=== PATIENT | female | born 1945 | race Hispanic/Latino ===

== ENCOUNTER 2016-12-26 09:34 | Outpatient (CLI) | payer MEDICARE, OTHER ==
--- NOTE | 2016-12-26 11:07 | Mammography Report ---
BONE DEXA:12/26/16 09:34:00 CLINICAL: Postmenopausal. COMPARISON: 12/15/14 TECHNIQUE: Two site bone DEXA performed on an Hologic scanner. FINDINGS: The average BMD of the lumbar spine L1-L4 is 0.720g/cm squared with a T-score of -3.0 and a Z-score of -0.7. This compares to 0.745g/cm squared on the last exam and represents a -3.3% change from the previous baseline. The average BMD of the left hip is 0.744g/cm squared with a T-score of -1.6 and a Z-score of 0. This compares to 0.752g/cm squared on the last exam and represents a -1.0% change from the previous baseline. The femoral neck BMD is 0.573g/cm squared with a T score of -2.5 and Z score of -0.6 IMPRESSION: 1. WHO classification: Osteoporosis with high fracture risk based on spine and left femoral neck measurements. 2. A modest decline in spine BMD and a slight decline in left hip BMD compared to the last exam. RECOMMENDATION: Clinical correlation and routine screening. DEFINITIONS: BMD = Bone Mineral Density T-score = BMD related to mean peak bone mass of young adult (mean expressed in Standard Deviation) Z-score = Age matched BMD expressed in SD World Health Organization (WHO) Diagnostic Criteria Normal T-score > -1 SD Osteopenia T-score between -1 and -2.4 SD Osteoporosis T-score -2.5 SD or below NOTE: BMD is not the only risk factor for fracture; also consider factors such as the patient's age, risk of falling, previous osteoporotic fracture, family history of osteoporotic fractures, current smoker, and low body weight. Z-scores are not calculated if >80 years of age.
== END 2016-12-26 09:35 | disposition home or self-care (01) ==
LOC: SPVWC 09:34
PROVIDERS: ATTEND Family Medicine
DX: M81.0 Age-related osteoporosis without current pathological fracture (principal); Z78.0 Asymptomatic menopausal state
CPT/HCPCS: 77080

== ENCOUNTER 2017-02-06 10:16 | Outpatient (CLI) | payer MEDICARE, OTHER ==
--- NOTE | 2017-02-06 15:43 | Mammography Report ---
BILATERAL DIGITAL SCREENING MAMMOGRAM with CAD: 02/06/17 10:16:00 CLINICAL: Routine screening. COMPARISON:02/06/16 FINDINGS: The breasts are heterogeneously dense, which may obscure small masses. No mass, architectural distortion or suspicious calcifications. IMPRESSION: No mammographic evidence of malignancy. BI-RADS CATEGORY: 1 - - Negative RECOMMENDATION: Routine mammographic screening in one year. COMMENT: Patient follow-up letters are generated by our Original application.
== END 2017-02-06 10:17 | disposition home or self-care (01) ==
LOC: SPVWC 10:16
PROVIDERS: ATTEND Obstetrics & Gynecology
DX: Z12.31 Encounter for screening mammogram for malignant neoplasm of breast (principal)
CPT/HCPCS: 77067; G0202

== ENCOUNTER 2017-07-11 15:02 | Outpatient (CLI) | payer MEDICARE, OTHER ==
--- NOTE | 2017-07-11 16:06 | XRay Report ---
XRAY RIGHT HAND THREE VIEWS: 07/11/17 15:02:00 CLINICAL: Right hand pain. FINDINGS: Moderate osteopenia. Moderately severe osteoarthritis involving the IP joint of the thumb and the DIP joints of digits 2-5. There is narrowing of the joint space with large osteophytes. No erosions. Osteoarthritis at the first MCP joint. The rest of the joints are normal. No fracture or dislocation. The carpal bones are intact. The distal radius and ulna are intact. Mild radiocarpal joint arthritis with narrowing of the joint space. Normal soft tissues. 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 Mild radiocarpal joint arthritis.
== END 2017-07-11 15:03 | disposition home or self-care (01) ==
LOC: SPVIMAG 15:02
PROVIDERS: ATTEND Orthopaedic Surgery Sports Medicine
DX: M18.9 Osteoarthritis of first carpometacarpal joint, unspecified (principal); M85.841 Other specified disorders of bone density and structure, right hand

== ENCOUNTER 2017-09-09 09:36 | Outpatient (CLI) | payer MEDICARE, OTHER ==
--- NOTE | 2017-09-09 10:53 | Mammography Report ---
Bilateral diagnostic mammogram followed by spot compression magnification density right breast and sonographic examination of the palpable region left breast: History: Left breast lump. Findings: Heterogeneous breast parenchyma bilaterally. 3 mm circumscribed density mid right breast effaced with spot compression magnification view. No microcalcifications seen. Benign axillary nodes. Sonographic examination reveals small cyst left axilla palpable region. Cyst measures 0.3 x 0.13 cm. Impression: Benign findings. Annual followup with mammogram recommended. BI-RADS CATEGORY: 2 = Benign ACR BI-RADS MAMMOGRAPHIC CODES: 0 = Needs additional imaging evaluation; 1 = Negative; 2 = Benign; 3 = Probably benign; 4 = Suspicious; 5 = Malignant; 6 = Known biopsy-proven malignancy COMMENT: 1. Dense breast tissue, i.e., adenosis, fibrocystic changes, etc., may obscure an underlying neoplasm. 2. Approximately 10% of cancers are not detected with mammography. 3. A negative mammography report should not delay biopsy if a clinically suspicious mass is present. COMMENT: [facility]. Impression:
== END 2017-09-09 09:37 | disposition home or self-care (01) ==
LOC: SPVWC 09:36
PROVIDERS: ATTEND Obstetrics & Gynecology
DX: N60.02 Solitary cyst of left breast (principal); R92.8 Other abnormal and inconclusive findings on diagnostic imaging of breast
CPT/HCPCS: 77066

== ENCOUNTER 2018-02-07 09:12 | Outpatient (CLI) | payer MEDICARE, OTHER ==
--- NOTE | 2018-02-07 16:34 | Mammography Report ---
BILATERAL DIGITAL SCREENING MAMMOGRAM with CAD: 02/07/18 09:12:00 CLINICAL: Routine screening. COMPARISON:02/06/17 and left mammogram 09/09/17 FINDINGS: The breasts are heterogeneously dense, which may obscure small masses. No mass, architectural distortion or suspicious calcifications. IMPRESSION: No mammographic evidence of malignancy. BI-RADS CATEGORY: 1 - - Negative RECOMMENDATION: Routine mammographic screening in one year. COMMENT: Patient follow-up letters are generated by our [employer] application.
== END 2018-02-07 09:13 | disposition home or self-care (01) ==
LOC: SPVWC 09:12
PROVIDERS: ATTEND Obstetrics & Gynecology
DX: Z12.31 Encounter for screening mammogram for malignant neoplasm of breast (principal)
CPT/HCPCS: 77067

== ENCOUNTER 2018-12-18 09:34 | Outpatient (CLI) | payer MEDICARE, OTHER ==
--- NOTE | 2018-12-18 11:45 | Mammography Report ---
BONE DEXA:12/18/18 09:34:00 CLINICAL: Postmenopausal. COMPARISON: 12/26/16 and 12/15/14 TECHNIQUE: Two site bone DEXA performed on an Hologic scanner. FINDINGS: The average BMD of the lumbar spine L1-L4 is 0.708g/cm squared with a T-score of -3.1 and a Z-score of -0.7. This compares to 0.7-0g/cm squared on the last exam and represents a -1.7% change from the last study and a -4.9% change from baseline. The average BMD of the left hip is 0.715g/cm squared with a T-score of -1.9 and a Z-score of -0.1. This compares to 0.744g/cm squared on the last exam and represents a -4.0% change from the last study and a -4.9% change from baseline. The left femoral neck BMD is 0.553 with a T score of -2.7 and a Z score of -0.6. This compares to a left femoral neck BMD of 0.573g/cm squared on the last exam. IMPRESSION: 1. WHO classification: Osteoporosis with high fracture risk based on both spine and left femoral neck measurements. 2. A modest decline in spine BMD and a greater decline in left hip BMD compared to previous exams. RECOMMENDATION: Clinical correlation and routine screening. DEFINITIONS: BMD = Bone Mineral Density T-score = BMD related to mean peak bone mass of young adult (mean expressed in Standard Deviation) Z-score = Age matched BMD expressed in SD World Health Organization (WHO) Diagnostic Criteria Normal T-score > -1 SD Osteopenia T-score between -1 and -2.4 SD Osteoporosis T-score -2.5 SD or below NOTE: BMD is not the only risk factor for fracture; also consider factors such as the patient's age, risk of falling, previous osteoporotic fracture, family history of osteoporotic fractures, current smoker, and low body weight. Z-scores are not calculated if >80 years of age.
== END 2018-12-18 09:35 | disposition home or self-care (01) ==
LOC: SPVWC 09:34
PROVIDERS: ATTEND Family Medicine
DX: M81.0 Age-related osteoporosis without current pathological fracture (principal); Z78.0 Asymptomatic menopausal state
CPT/HCPCS: 77080

== ENCOUNTER 2019-02-10 09:37 | Outpatient (CLI) | payer MEDICARE, OTHER ==
--- NOTE | 2019-02-10 11:56 | Mammography Report ---
BILATERAL DIGITAL SCREENING MAMMOGRAM WITH CAD INDICATION: Routine screening mammography. TECHNIQUE: Digital bilateral 2D mammography was obtained in the craniocaudal and mediolateral obliq ue projections. This examination was interpreted with the benefit of Computer-Aided Detection analysi s. COMPARISON: 02/07/2018 FINDINGS: Breast Density: The breasts are heterogeneously dense, which may obscure small masses. There is no evidence of dominant mass, suspicious calcifications or architectural distortion in eith er breast. IMPRESSION:No mammographic evidence of malignancy. BI-RADS Category 1: Negative. No mammographic evidence of malignancy. Recommend routine screening m ammography in one year. A "normal" or negative report should not discourage follow up or biopsy of a clinically significant f inding. A written summary of these findings will be mailed to the patient. The patient will be entered into a mammography reporting system which will generate a reminder letter for the patient's next appointmen t at the appropriate interval. The [employer] recommends yearly mammograms starting at age 40 and continuing as l renetta as a woman is in good health. Breast MRI is recommended for women with an approximate 20-25% or greater lifetime risk of breast cancer, including women with a strong family history of breast or ova mook cancer or who have been treated for Hodgkin's disease. Signer Name: Richar Douglas MD Signed: 02/10/2019 11:52 AM Workstation Name: [id number]
== END 2019-02-10 09:38 | disposition home or self-care (01) ==
LOC: SPVWC 09:37
PROVIDERS: ATTEND Obstetrics & Gynecology
DX: Z12.31 Encounter for screening mammogram for malignant neoplasm of breast (principal)
CPT/HCPCS: 77067

== ENCOUNTER 2020-02-16 10:03 | Outpatient (CLI) | payer MEDICARE, OTHER ==
--- NOTE | 2020-02-16 16:02 | Mammography Report ---
DIGITAL SCREENING MAMMOGRAM WITH CAD, 02/16/2020 INDICATION: Routine screening mammography. TECHNIQUE: Digital bilateral 2D mammography was obtained in the craniocaudal and mediolateral obliq ue projections. This examination was interpreted with the benefit of Computer-Aided Detection analysi s. COMPARISON: 02/10/2019, 02/07/2018 FINDINGS: Breast Density: The breasts are heterogeneously dense, which may obscure small masses. There is no evidence of dominant mass, suspicious calcifications or architectural distortion in eithe r breast. IMPRESSION: Follow up recommendation: Routine yearly BI-RADS Category 1: Negative. A "normal" or negative report should not discourage follow up or biopsy of a clinically significant f inding. A written summary of these findings will be mailed to the patient. The patient will be entered into a mammography reporting system which will generate a reminder letter for the patient's next appointmen t at the appropriate interval. The [employer] recommends yearly mammograms starting at age 40 and continuing as l renetta as a woman is in good health. Breast MRI is recommended for women with an approximate 20-25% or greater lifetime risk of breast cancer, including women with a strong family history of breast or ova mook cancer or who have been treated for Hodgkin's disease. Signer Name: Víctor Guerrero MD Signed: 02/16/2020 3:58 PM Workstation Name: [id number]
== END 2020-02-16 10:04 | disposition home or self-care (01) ==
LOC: SPVWC 10:03
PROVIDERS: ATTEND Obstetrics & Gynecology
DX: Z12.31 Encounter for screening mammogram for malignant neoplasm of breast (principal)
CPT/HCPCS: 77067

== ENCOUNTER 2020-12-19 09:43 | Outpatient (CLI) | payer MEDICARE, OTHER ==
--- NOTE | 2020-12-19 11:07 | Mammography Report ---
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 75 years Female COMPARISON: 12/18/2018. LUMBAR SPINE, L1-L4: - Bone mineral density (BMD) = 0.717 g/cm2. - T-score = -3.0 - Z-score = -0.5 Change (%) since most recent prior (if available): 1.3% LEFT HIP, : - Bone mineral density (BMD) = 0.595 g/cm2. - T-score = -2.3 - Z-score = -0.1 Change (%) since most recent prior (if available): 7.5 IMPRESSION: 1. WHO Classification: Osteoporosis. Fracture Risk: High. 2. Bone density has improved 1.3% at the spine and 7.5% the left hip when compared with the most rece nt exam. Note: 10-Year Fracture Risk (FRAX) not reported. This DEXA unit lacks FRAX functionality. BMD Reporting Guidelines (ISCD, 2015) BMD Reporting in Postmenopausal Women and in Men Age 50 and Older - T-scores are preferred. - The WHO densitometric classification is applicable. BMD Reporting in Females Prior to Menopause and in Males Younger Than Age 50 - Z-scores, not T-scores, are preferred. This is particularly important in children. - A Z-score of -2.0 or lower is defined as below the expected range for age, and a Z-score above -2.0 is within the expected range for age. - Osteoporosis cannot be diagnosed in men under age 50 on the basis of BMD alone. - The WHO diagnostic criteria may be applied to women in the menopausal transition. http://www.iscd.org/official-positions/9973-qapc-cyegfnhq-positions-adult/ Signer Name: Edward Wright MD Signed: 12/19/2020 11:03 AM Workstation Name: [id number]
== END 2020-12-19 09:44 | disposition home or self-care (01) ==
LOC: SPVWC 09:43
PROVIDERS: ATTEND Family Medicine
DX: Z13.820 Encounter for screening for osteoporosis (principal); M81.0 Age-related osteoporosis without current pathological fracture
CPT/HCPCS: 77080

== ENCOUNTER 2021-02-22 10:05 | Outpatient (CLI) | payer MEDICARE, OTHER ==
--- NOTE | 2021-02-22 13:59 | Mammography Report ---
DIGITAL SCREENING MAMMOGRAM WITH CAD, 02/22/2021 CLINICAL INFORMATION / INDICATION: Routine screening mammography. SCREENING MAMMO TECHNIQUE: Digital bilateral 2D mammography was obtained in the craniocaudal and mediolateral obliqu e projections. This examination was interpreted with the benefit of Computer-Aided Detection analysis . COMPARISON: 02/11/2013 through 02/16/2020. FINDINGS: Breast Density: The breasts are heterogeneously dense, which may obscure small masses. No dominant mass, suspicious calcifications, or architectural distortion in either breast. No new abnormality is seen. IMPRESSION: No mammographic evidence of malignancy. Follow up recommendation: Routine yearly BI-RADS Category 1: Negative. A "normal" or negative report should not discourage follow up or biopsy of a clinically significant f inding. A written summary of these findings will be mailed to the patient. The patient will be entered into a mammography reporting system which will generate a reminder letter for the patient's next appointmen t at the appropriate interval. The [employer] recommends yearly mammograms starting at age 40 and continuing as l renetta as a woman is in good health. Breast MRI is recommended for women with an approximate 20-25% or greater lifetime risk of breast cancer, including women with a strong family history of breast or ova mook cancer or who have been treated for Hodgkin's disease. Signer Name: Patrice Stone MD Signed: 02/22/2021 1:54 PM Workstation Name: [id number]
== END 2021-02-22 10:06 | disposition home or self-care (01) ==
LOC: SPVWC 10:05
PROVIDERS: ATTEND Obstetrics & Gynecology
DX: Z12.31 Encounter for screening mammogram for malignant neoplasm of breast (principal); N64.89 Other specified disorders of breast
CPT/HCPCS: 77067

== ENCOUNTER 2022-04-04 14:12 | Outpatient (CLI) | payer MEDICARE, OTHER ==
--- NOTE | 2022-04-05 14:36 | Mammography Report ---
DIGITAL SCREENING MAMMOGRAM WITH TOMOSYNTHESIS WITH CAD, 04/05/2022 CLINICAL INFORMATION / INDICATION: Routine Screening Mammography. TECHNIQUE: Digital bilateral 2D and 3D mammography with tomosynthesis was obtained in the craniocauda l and mediolateral oblique projections. Computer-Aided Detection (CAD) analysis was used for interpre tation of this study. COMPARISON: 02/22/2021, 02/16/2020 FINDINGS: Breast Density: The breasts are heterogeneously dense, which may obscure small masses. No dominant mass, suspicious calcifications, or architectural distortion in either breast. No interval change. IMPRESSION: No mammographic evidence of malignancy. Follow up recommendation: Routine yearly screening mammogram. BI-RADS Category 1: NEGATIVE A "normal" or negative report should not discourage follow up or biopsy of a clinically significant f inding. A written summary of these findings will be mailed to the patient. The patient will be entered into a mammography reporting system which will generate a reminder letter for the patient's next appointmen t at the appropriate interval. The [employer] recommends yearly mammograms starting at age 40 and continuing as l renetta as a woman is in good health. Breast MRI is recommended for women with an approximate 20-25% or greater lifetime risk of breast cancer, including women with a strong family history of breast or ova mook cancer or who have been treated for Hodgkin's disease. Signer Name: Prerna Arvizu MD Signed: 04/05/2022 2:31 PM Workstation Name: [id number]
== END 2022-04-04 14:13 | disposition home or self-care (01) ==
LOC: SPVWC 14:12
PROVIDERS: ATTEND Obstetrics & Gynecology
DX: Z12.31 Encounter for screening mammogram for malignant neoplasm of breast (principal)
CPT/HCPCS: 77063; 77067